=== PATIENT | female | born 1955 | race Caucasian/White ===

== ENCOUNTER → 2017-12-22 15:00 | Outpatient (CLI) | payer MEDICAID, SELFPAY ==
[2017-12-22 16:07] LABS: Absolute Lymphocyte Count 1.87 X10^3/ul (0.83-4.51); Absolute Neutrophil Count 4.6 X10^3/uL (2.0-7.7); Basophil# 0.04 X10^3/uL; Basophil% 0.6 % (0-1); Eosinophil# 0.13 X10^3/uL; Eosinophils% 1.8 % (0-5); Hematocrit 39.4 % (37-47); Hemoglobin 13.3 g/dl (12.0-15.0); Lymphocyte # 1.87 X10^3/ul (4.0); Lymphocyte % 26.5 % (19-41); Mean Corp Hgb Conc 33.8 g/gl (32-36); Mean Corpuscular Hgb 29.8 pg (27.0-32.0); Mean Corpuscular Volume 88.1 fL (81-99); Mean Platelet Vol. 9.1 fl (6.2-12.0); Monocyte# 0.37 X10^3/uL; Monocyte% 5.2 % (0-10); Neutrophil # 4.63 X10^3/uL (2.7-7.7); Neutrophil % 65.8 % (47-70); Platelet Count 332 K/mm3 (150-450); RBC Distribution Width CV 13.2 % (11.6-14.6); Red Blood Count 4.47 M/mm3 (4.2-5.4); White Blood Count 7.1 K/mm3 (4.4-11.0)
[2017-12-22 16:18] LABS: ALB/GLOB Ratio 0.9 RATIO (0.9-2.4); AST(SGOT) 15 U/L (15-37); Alanine Aminotransfer ALT/SGPT 21 U/L (13-56); Albumin, Serum 3.8 g/dL (3.2-5.0); Alkaline Phosphatase 52 U/L (45-117); Anion Gap 10 (5-15); BUN 19 mg/dL (7-18); BUN/Creat Ratio 31.9 RATIO (10-20); Calcium,Total 8.6 mg/dL (8.5-10.1); Chloride 109 mmol/L (98-107); EST Glomerular Filtration Rate 109 mL/min (>60); Est Glom Filt Rate - Afr Amer 132 mL/min (>60); Globulin 4.2 g/dL (2.2-4.2); Glucose 79 mg/dL (74-106); Potassium 3.6 mmol/L (3.5-5.1); Sodium Level 140 mmol/L (136-145)
[2017-12-22 16:23] LABS: POSITIVE COUNT NO; POSITIVE DIFFERENTIAL NO; POSITIVE MORPHOLOGY NO
== END ==
PROVIDERS: Family Provider Family Medicine; PCP Family Medicine; Visit Provider Family Medicine
DX: Z01.818 Encounter for other preprocedural examination (principal)
CPT/HCPCS: 36415; 80053; 85025

== ENCOUNTER 2018-01-05 09:31 | Day surgery (SDC) | payer MEDICAID, SELFPAY ==
[2018-01-05] VITALS (7 sets, daily range): BP systolic 88–172; BP diastolic 54–139; PULSE 76–105; RESP 16–18; TEMP 36.1–36.9; O2SAT 96–100; BMI 23.6
--- NOTE | 2018-01-05 11:30 | RAD_ITS ---
STUDY: X-RAY - RIGHT FOOT CLINICAL: Female, 62 years old. Removal of hardware. TECHNIQUE: 3 C-arm views. COMPARISON: 08/12/2016. FINDINGS: These 3 C-arm views show no residual radiopaque hardware in the first metatarsal. Screw holes are seen in the distal first metatarsal. Electronically Signed: Hunter Jerome MD at 15:50 EDT , Service support , RAD/Foot 2 Views
[2018-01-05] MEDS: Cefazolin 2 GM in 0.9% Normal Saline 100 ML IV (12:21)
--- NOTE | 2018-01-05 12:28 | DCINST_ITS ---
Discharge Diet: Light diet - advance as tolerated Discharge Activity: May Not Drive Weight Bearing Status: Partial weight bearing - Partial weightbearing right foot Keep extremity elevated above heart level: Right Leg - Keep right foot elevated for at least 50 minutes per hour Call your doctor if your incision/area has: Continuous Slow Oozing, Sudden Increased Bleeding, Foul Smelling Discharge Call your doctor if you observe: Fever of 101 or Higher, Coldness, Increased Pain, Shortness of breath, Chest pain, Increased palpitations (irregular heartbeat), Calf discomfort, Uncontrolled pain Cleanse incision/area with: Do not get Incision Wet, Keep Dressing Clean & Dry Allergies/Adverse Reactions: Allergies meloxicam Allergy (Verified 12/29/17 14:10) Other tomato [Tomato] Allergy (Verified 12/29/17 14:10) Unknown celecoxib [From Celebrex] Adverse Reaction (Verified 12/29/17 14:10) Other PROJECTILE VOMITING STEROIDS Allergy (Uncoded 10/13/17 11:01) Other BLOW-UP, RETINS A TON OF FLUID Medications to take at Discharge Divalproex Sodium [Depakote] 500 mg PO TID 08/08/16 Amlodipine Besylate [Norvasc] 10 mg PO DAILY 10/13/17 Atorvastatin Calcium [Lipitor] 10 mg PO DAILY 10/13/17 Quetiapine Fumarate [Seroquel] 25 mg PO TID PRN PRN 10/13/17 Quetiapine Fumarate [Seroquel] 50 mg PO QHS 10/13/17 Aspirin 325 mg PO DAILY 12/29/17 Ibuprofen [Advil] 200 mg PO Q6H PRN PRN 12/29/17 Oxycodone HCl/Acetaminophen [Percocet 5/325] 1 - 2 tablet PO Q6H PRN PRN Oxycodone HCl/Acetaminophen [Percocet 5/325] 1 - 2 tab PO Q4H PRN PRN 3 Days # 30 tab 01/05/18 The following prescriptions were given: Oxycodone HCl/Acetaminophen [Percocet 5/325] 1 - 2 tab PO Q4H PRN PRN 3 Days # 30 tab PRN Reason: Pain Primary Care Physician: Lida Montenegro MD [Primary Care Provider] - Please Follow Up With: Blayne Benz DPM When: within 1 week or sooner if needed
[2018-01-05] MEDS: Bupivacaine Mpf 0.5% 30 ML VIAL (12:36)
--- NOTE | 2018-01-05 12:53 | PCM.DC.POD ---
Discharge Diet: Light diet - advance as tolerated Discharge Activity: May Not Drive Weight Bearing Status: Partial weight bearing - Partial weightbearing right foot Keep extremity elevated above heart level: Right Leg - Keep right foot elevated for at least 50 minutes per hour Call your doctor if your incision/area has: Continuous Slow Oozing, Sudden Increased Bleeding, Foul Smelling Discharge Call your doctor if you observe: Fever of 101 or Higher, Coldness, Increased Pain, Shortness of breath, Chest pain, Increased palpitations (irregular heartbeat), Calf discomfort, Uncontrolled pain Cleanse incision/area with: Do not get Incision Wet, Keep Dressing Clean & Dry Allergies/Adverse Reactions: Allergies meloxicam Allergy (Verified 12/29/17 14:10) Other tomato [Tomato] Allergy (Verified 12/29/17 14:10) Unknown celecoxib [From Celebrex] Adverse Reaction (Verified 12/29/17 14:10) Other PROJECTILE VOMITING STEROIDS Allergy (Uncoded 10/13/17 11:01) Other BLOW-UP, RETINS A TON OF FLUID Medications to take at Discharge Divalproex Sodium [Depakote] 500 mg PO TID 08/08/16 Amlodipine Besylate [Norvasc] 10 mg PO DAILY 10/13/17 Atorvastatin Calcium [Lipitor] 10 mg PO DAILY 10/13/17 Quetiapine Fumarate [Seroquel] 25 mg PO TID PRN PRN 10/13/17 Quetiapine Fumarate [Seroquel] 50 mg PO QHS 10/13/17 Aspirin 325 mg PO DAILY 12/29/17 Ibuprofen [Advil] 200 mg PO Q6H PRN PRN 12/29/17 Oxycodone HCl/Acetaminophen [Percocet 5/325] 1 - 2 tablet PO Q6H PRN PRN 12/29/17 Oxycodone HCl/Acetaminophen [Percocet 5/325] 1 - 2 tab PO Q4H PRN PRN 3 Days #30 tab 01/05/18 The following prescriptions were given: Oxycodone HCl/Acetaminophen [Percocet 5/325] 1 - 2 tab PO Q4H PRN PRN 3 Days #30 tab PRN Reason: Pain Primary Care Physician: Lida Montenegro MD [Primary Care Provider] - Please Follow Up With: Blayne Benz DPM When: within 1 week or sooner if needed
--- NOTE | 2018-01-05 12:55 | PCM.OPRPT ---
Report of Operation Date of Procedure: 01/05/18 - Surgeon: Blayne Benz DPM Pre-Operative Diagnosis: Painful retained hardware 1st metatarsal right foot Post-Operative Diagnosis: Same Surgery/Procedure Performed:: Removal of hardware 1st metatarsal right foot Description of Surgical Findings:: Screws 1st metatarsal, right foot - which were removed without complication. universal branch consultant: Yes - Dr. Nataliia Lopez Type of Anesthesia:: Local MAC Specimen's removed: None Estimated Blood Loss (mL): <1mL Description of Procedure: Indications: This is a 62 year old female with history of right 1st metatarsal osteotomy bunionectomy which healed well and doing well, with the exception patient has developed painful and prominent hardware right 1st metatarsal. She elected (and asking) to have the screws removed. We discussed this procedure in great detail, reviewed the rationale of the procedure, the possible benefits vs risks, goals, expectations, alternative options, and the typical/estimated healing time. The patient expressed understanding and agreement and elected to proceed forward with hardware removal. The consent forms were reviewed with her and she freely signed them. All of her questions were answered. Operative Procedure: The patient was brought back to the operating room and was placed on the operating room table in the supine position. She did received spinal anesthesia per the anesthesia service. The patient was carefully secured to the operating room table with a safety belt around her waist. The patient received 2 grams of IV Cefazolin for antibiotic prophylaxis. The patient received MAC anesthesia per the anesthesia team. A right foot 1st ray block was completed with 10mL of 0.5% Bupivacaine plain after the overlying skin was cleansed with 70% Isopropyl alcohol. A well padded pneumatic tourniquet was applied around her right ankle. The right foot was scrubbed, prepped, and draped in the usual aseptic fashion. The right foot was elevated for 3 minutes and the right ankle pneumatic tourniquet was inflated to 250mmHg. The screw heads which were in the 1st metatarsal were palpated. An incision was made over the screw heads, at the level of the previous skin incision and was at the level of the dorsal medial 1st metatarsal, medial to the Extensor Hallucis Longus tendon. Careful dissection was completed down to the screw heads, and they were easily visualized. They were removed using the appropriate screw dedicated regional driver. This was done without incident. They were removed in toto. Complete removal was confirmed using intraoperative fluoroscopy. The remaining tissues were healthy and viable. The surgical site was stable. The site was flushed out with copious of normal saline solution. The skin was reapproximated using 3-0 Nylon. The pneumatic ankle tourniquet was deflated (12 minutes total tourniquet time), there was immediate return of warmth and perfusion to the foot, with normal temperature. CFT was less than 2 seconds to all the toes. Hemostasis was achieved. An additional 3mL of 0.5% Bupivacaine plain was given as a nerve block around the surgical site to aid post operative pain control. A dressing was applied which consisted of Betadine soaked Adaptic, 4x4 gauze, Kerlix, and Antonino bandage. The patient was transported from the operating room to the recovery room with vital signs stable, and in good condition. Post operative orders were placed, and post operative instructions were reviewed with patient and her who was here with her today. Keep right foot elevated, partial weightbearing right foot with use of surgical shoe or CAM Walker. Keep dressing clean, dry, and intact. Percocet 5mg/325mg tab, 1-2 tabs PO q 6 hours PRN pain was provided to aid post operative pain control. Patient is to follow up with me within 1 week or sooner if needed. Grafts/Implants Used: None - Complications None
== END 2018-01-05 14:13 | disposition home or self-care (01) ==
LOC: SDC 09:31 → AC 09:33
PROVIDERS: Family Provider Family Medicine; PCP Family Medicine; Visit Provider Podiatrist
PROC: (CPT 20680; principal; 2018-01-05 11:15)
DX: T84.84XA Pain due to internal orthopedic prosthetic devices, implants and grafts, initial encounter (principal); I10 Essential (primary) hypertension; J44.9 Chronic obstructive pulmonary disease, unspecified; F17.210 Nicotine dependence, cigarettes, uncomplicated; Z79.82 Long term (current) use of aspirin; Z79.899 Other long term (current) drug therapy; Z86.69 Personal history of other diseases of the nervous system and sense organs
CPT/HCPCS: 01480; 20680; 73620; 76000; J7120; J2405

== ENCOUNTER → 2018-02-06 11:03 | Outpatient (CLI) | payer MEDICAID, SELFPAY ==
[2018-02-06 11:51] LABS: Absolute Lymphocyte Count 1.39 X10^3/ul (0.83-4.51); Absolute Neutrophil Count 4.8 X10^3/uL (2.0-7.7); Basophil# 0.02 X10^3/uL; Basophil% 0.3 % (0-1); Eosinophil# 0.02 X10^3/uL; Eosinophils% 0.3 % (0-5); Hemoglobin 14.2 g/dl (12.0-15.0); Lymphocyte # 1.39 X10^3/ul (4.0); Lymphocyte % 21.2 % (19-41); Mean Corpuscular Volume 87.9 fL (81-99); Mean Platelet Vol. 9.3 fl (6.2-12.0); Monocyte# 0.35 X10^3/uL; Monocyte% 5.3 % (0-10); Neutrophil # 4.77 X10^3/uL (2.7-7.7); Neutrophil % 72.7 % (47-70); POSITIVE COUNT NO; POSITIVE DIFFERENTIAL NO; POSITIVE MORPHOLOGY NO; Platelet Count 343 K/mm3 (150-450); RBC Distribution Width CV 14.3 % (11.6-14.6); RBC Distribution Width SD 45.8 fl (35.1-43.9); Red Blood Count 4.89 M/mm3 (4.2-5.4); White Blood Count 6.6 K/mm3 (4.4-11.0)
[2018-02-06 11:59] LABS: Erythrocyte Sedimentation Rate 31 mm/hr (0-30)
[2018-02-06 12:20] LABS: ALB/GLOB Ratio 0.9 RATIO (0.9-2.4); AST(SGOT) 21 U/L (15-37); Alanine Aminotransfer ALT/SGPT 23 U/L (13-56); Alkaline Phosphatase 45 U/L (45-117); Anion Gap 10 (5-15); BUN 11 mg/dL (7-18); BUN/Creat Ratio 18.1 RATIO (10-20); CRP 6.08 mg/L (0.0-3.0); Chloride 104 mmol/L (98-107); Creatinine, Serum 0.61 mg/dL (0.55-1.02); EST Glomerular Filtration Rate 107 mL/min (>60); Est Glom Filt Rate - Afr Amer 129 mL/min (>60); Globulin 4.4 g/dL (2.2-4.2); Glucose 75 mg/dL (74-106); Potassium 3.7 mmol/L (3.5-5.1); Protein, Total 8.4 g/dL (6.4-8.2); Rheumatoid Factor < 10.0 IU/mL (<15); Sodium Level 141 mmol/L (136-145); Uric Acid 6.8 mg/dL (2.6-6.0)
[2018-02-12 14:03] LABS: CCP IgG Antibodies 5 units (0-19); HLA B27 Negative (.)
== END ==
PROVIDERS: Family Provider Family Medicine; PCP Family Medicine; Visit Provider Podiatrist
DX: M10.9 Gout, unspecified (principal); M06.9 Rheumatoid arthritis, unspecified
CPT/HCPCS: 36415; 80053; 81374; 84550; 85025; 85652; 86140; 86200; 86431

== ENCOUNTER → 2019-05-17 12:15 | Outpatient (CLI) | payer MEDICAID, SELFPAY ==
--- NOTE | 2019-05-17 12:20 | ART_ITS ---
Reason For Study: PVD Bilateral LE Procedure A bilateral lower extremity continuous wave Doppler with analog waveform analysis,segmental pressures,and ankle brachial indexes without exercise. Left Segmental Pressures Left brachial= 122mmHg. Left posterior tibial artery = 130mmHg. Left dorsalis pedis artery = 119mmHg. Left digit = 134 mmHg. The left dorsalis pedis waveforms are triphasic. The left posterior tibial artery waveforms are triphasic. Right Segmental Pressures Right brachial= 122mmHg. Right posterior tibial artery = 132mmHg. Right dorsalis pedis artery = 121mmHg. Right digit = 113 mmHg. The right dorsalis pedis waveforms are triphasic. The right posterior tibial artery waveforms are triphasic. Indices The right ankle brachial index by the dorsalis pedis is 0.99. The right ankle brachial index by the posterior tibial artery is 1.08. The right digital-brachial index is 0.93. The left ankle brachial index by the dorsalis pedis is 0.98. The left ankle brachial index by the posterior tibial artery is 1.07. The left digital-brachial index is 1.10. Interpretation Summary Triphasic Doppler waveforms are noted at ankle level bilaterally. Pulse-volume recording waveform amplitudes appear diminished at digital level bilaterally. Resting ankle-brachial indices are normal bilaterally. Digital-brachial indices are normal bilaterally. There is no evidence of significant arterial occlusive disease in the lower extremities bilaterally. Ordering Physician: Blayne Benz Referring Physician: Kristy Villar Performed By: Rachel Hensley RVT
== END ==
PROVIDERS: Family Provider Nurse Practitioner Family; PCP Nurse Practitioner Family; Referring Provider Podiatrist; Visit Provider Podiatrist
DX: I73.9 Peripheral vascular disease, unspecified (principal)
CPT/HCPCS: 93923

== ENCOUNTER → 2023-08-15 | Outpatient (CLI) | payer MEDICARE, MEDICAID, SELFPAY ==
--- NOTE | 2023-08-15 11:20 | NEURO ---
NCS and/or EMG Patient Report Ordering Doctor: Viral Serna DATE OF SERVICE: 08/15/23 Clinical Summary: 67 year old female presenting with complaints of pain and numbness in the left upper extremity. This EMG/NCS was performed to evaluate for left cervical radiculopathy. Nerve Conduction Studies Summary: The left ulnar-D5 SNAP distal latency was mildly prolonged. Otherwise, nerve conduction studies in the left upper extremity were normal. Needle Examination Summary: There was a higher proportion of motor unit action potentials with reduced recruitment, increased amplitude, increased duration, and polyphasia in the left C8 myotome. Impression: There is electrodiagnostic evidence of the following - 1) Mild, chronic, left C8 radiculopathy Multi Select Codes Neurology Neurology Interp Codes: 36022-92 Musc test done w/n test comp (interp) (1) and 25294-08 Nrv cndj tst 5-6 studies (interp)
== END | disposition home or self-care (01) ==
PROVIDERS: PCP Nurse Practitioner Family; Referring Provider Orthopaedic Surgery; Visit Provider Orthopaedic Surgery
DX: M25.512 Pain in left shoulder (principal); R20.2 Paresthesia of skin
CPT/HCPCS: 95886; 95910